=== PATIENT | female | born 1985 | race Caucasian/White ===

== ENCOUNTER 2018-05-15 17:24 | Inpatient (IN) | payer BC ==
[2018-05-15 18:12] VITALS: BMI 34.7
[2018-05-15 18:43] LABS: Bilirubin Negative (Negative); Blood, Urine Negative (Negative); Clarity CLOUDY (Clear); Glucose, Urine (Dipstick) Negative (Negative); Leukocyte Negative (Negative); Nitrite Negative (Negative); Protein, Urine (Dipstick) Negative (Neg-Trace); Urobilinogen 0.2 mg/dL (0.2-1.0); pH, Urine 6.5 (5.0-9.0)
[2018-05-15 18:46] LABS: Pathc Cast-AUWi Flag 1.36 (0-2.49)
[2018-05-15 18:48] LABS: Specific Gravity, Urine 1.002 (1.002-1.036)
[2018-05-15 18:51] LABS: Hemoglobin 13.8 g/dL (12.0-16.0); Mean Corpuscular HGB CONC 34.2 g/dL (32.0-36.0); Mean Corpuscular Hemoglobin 32.6 pg (27.0-31.0); Mean Corpuscular Volume 95.5 fL (78.0-98.0); RBC Distribution Width 12.3 % (11.5-14.5); Red Blood Cell (RBC) Count 4.23 mill/uL (4.20-5.40); White Blood Cell (WBC) Count 11.2 thou/uL (4.8-10.8)
[2018-05-15 18:56] LABS: Bacteria/HPF 1+ HPF (None Seen); Hyaline Casts/LPF NONE SEEN LPF (0-3 Hyaline); RBC/HPF None Seen HPF (0-3); Renal Epithelial None Seen HPF (0-3); Transitional Epithelial NONE SEEN HPF (0-3)
[2018-05-15 19:07] LABS: #Basophils 0.1 thou/uL (0.0-0.2); #Eosinphils 0.1 thou/uL (0.0-0.7); #Lymphocytes 2.3 thou/uL (1.20-3.40); #Monocytes 0.8 thou/uL (0.11-0.59); %Basophils 0.8 % (0.0-1.0); %Eosinophils 0.7 % (0.0-10.0); %Lymphocytes 20.1 % (21.0-51.0); %Monocytes 7.2 % (0.0-10.0); %Neutrophils 71.2 % (42.0-75.0); Large Platelets SLIGHT; MDiff Complete? YES; Mean Platelet Volume 12.1 fL (7.4-10.4); Platelet Count 155 thou/uL (130-400); Platelet Morphology Comment Appears Adequate
[2018-05-15 19:08] LABS: ALT (SGPT) 13 U/L (8-55); AST (SGOT) 17 U/L (5-34); Albumin 3.9 g/dL (3.5-5.0); Alkaline Phosphatase 142 U/L (40-150); Anion Gap 12 mmol/L (10-20); BUN (Urea Nitrogen) 12 mg/dL (7.0-18.7); Bilirubin, Total 0.3 mg/dL (0.2-1.2); Calc. Creatinine Clearance 146 mL/min (70-130); Calcium 9.3 mg/dL (7.8-10.44); Carbon Dioxide 22 mmol/L (22-29); Chloride 105 mmol/L (98-107); Estimated GFR-MDRD 83; Globulin 3.2 g/dL (2.4-3.5); Glucose 76 mg/dL (70-105); Potassium 4.1 mmol/L (3.5-5.1); Protein, Total 7.1 g/dL (6.0-8.3); Sodium 135 mmol/L (136-145); Uric Acid 5.7 mg/dL (2.6-6.0)
[2018-05-15] MEDS ORDERED: Acetaminophen 500 MG TAB PO SCH (19:30)
[2018-05-15] MEDS ORDERED: Lidocaine 1% (PF) 30 ML VIAL SC PRN (19:37)
[2018-05-15] MEDS ORDERED: Zolpidem Tartrate 5 MG TAB PO PRN (19:37)
[2018-05-15] MEDS ORDERED: Acetaminophen 500 MG TAB PO PRN (19:37)
[2018-05-15] MEDS ORDERED: NS / Oxytocin 40 units/1000ml 1,000 ML IV PRN (19:37)
[2018-05-15] MEDS ORDERED: Ondansetron PF 4 MG/2 ML Vial IVP PRN (19:37)
[2018-05-15] MEDS ORDERED: Butorphanol Tartrate 1 MG/ML VIAL SLOW IVP PRN (19:37)
[2018-05-15] MEDS ORDERED: Ibuprofen 800 MG TAB PO PRN (19:37)
[2018-05-15] MEDS: Lactated Ringer's 1,000 ML IV SCH (19:45)
--- NOTE | 2018-05-15 19:55 | PDOC.LDHP ---
Labor and Delivery H&P Chief complaint: other (GHTN) HPI: 32 yo G1 @ 39w1d by LMP c/w 8 week CRL who presented to L&D due to HTN noted at home. Pre E labs wnl. Antepartum course complicated by 50 lb gain, otherwise benign. Pt had been evaluated by Dr. Dash. Current gestational age (weeks): 39 Due date: 05/21/18 Dating criteria: last menstrual period Grav: 1 Para: 0 Current complications: gestational hypertension Abnormal US findings: No Past Medical History: Denies Current medications: pre-chrissie vitamins Previous surgical history: none Allergies/Adverse Reactions: Allergies Allergy/AdvReac Type Severity Reaction Status Date / Time No Known Allergies Allergy Verified 05/15/18 18:13 Social history: none - Physical Exam Abnormal vital signs: Mild HTN, no severe range BPs FHT: category 1 (130s, mod heidy, +accels, no decels) Handley contractions every: no ctx - Vaginal Exam cm dilated: 0 (per RN check ) Effacement: 0% Station: -3 - OB Labs Blood type: O RH: positive Antibody Screen: negative HIV: negative RPR: negative HEPSAg: negative 1 hour GCT: negative GBS: negative Urine drug screen: negative Rubella: immune - Assessment 39w1d IUP GHTN Maternal weight gain > 50 lbs - Plan Plan: admit to L&D, cervical ripening, informed consent obtained, anesthesia consult for pain management -: Monitor BPs, currently mild range and labs wnl.
[2018-05-15 20:55] LABS: Hemoglobin 13.7 g/dL (12.0-16.0); Mean Corpuscular HGB CONC 34.9 g/dL (32.0-36.0); Mean Corpuscular Hemoglobin 33.1 pg (27.0-31.0); Mean Corpuscular Volume 94.6 fL (78.0-98.0); Platelet Count 151 thou/uL (130-400); RBC Distribution Width 12.5 % (11.5-14.5); Red Blood Cell (RBC) Count 4.15 mill/uL (4.20-5.40); White Blood Cell (WBC) Count 11.3 thou/uL (4.8-10.8)
[2018-05-15] MEDS: Misoprostol 100 MCG TAB VAG SCH (21:06)
[2018-05-15 21:32] LABS: Syphilis Antibody Nonreactive (Nonreactive); Syphilis Antibody Index 0.04 S/CO (<1.00 Non-Reactive)
[2018-05-15 23:48] LABS: HBSAg Index 0.28 S/CO (0-0.99); Hep B Surf Ag Non-Reactive S/CO (NonReactive)
[2018-05-16] MEDS: Lactated Ringer's 1,000 ML IV SCH ×2 (00:30→12:05)
[2018-05-16] MEDS ORDERED: Bicitra 30 ML UDCUP ONE (04:17)
[2018-05-16] MEDS ORDERED: Dexamethasone 4 mg/ml Vial ONE (04:30)
[2018-05-16] MEDS ORDERED: Ketorolac Tromethamine 30 MG/ML VIAL ONE ×2 (04:30→16:07)
[2018-05-16] MEDS ORDERED: Ondansetron PF 4 MG/2 ML Vial ONE ×2 (04:30→16:07)
[2018-05-16] MEDS ORDERED: ePHEDrine/0.9% NaCl/PF SYRINGE 50 mg/10 ml ONE (04:30)
[2018-05-16] MEDS ORDERED: PHENYLEPHRINE-NS 100 MCG/ML 10 ML SYRINGE ONE ×2 (04:30→16:07)
[2018-05-16] MEDS ORDERED: Oxytocin 10 UNITS/ML VIAL ONE ×2 (04:30→05:36)
[2018-05-16] MEDS ORDERED: MORPHINE 5 MG/10 ML PF VIAL ONE (04:30)
[2018-05-16] MEDS ORDERED: Ondansetron HCl/PF 4 MG/2 ML Vial IVP PRN (04:43)
[2018-05-16] MEDS ORDERED: Ondansetron PF 4 MG/2 ML Vial IVP PRN (04:43)
[2018-05-16] MEDS ORDERED: Meperidine HCl/PF 25 MG/ML VIAL SLOW IVP PRN (04:43)
[2018-05-16] MEDS ORDERED: Eucerin (Mineral Oil/Petrolatum,White) 30 gm Jar TOP PRN (04:43)
[2018-05-16] MEDS ORDERED: Promethazine HCl 25 MG SUPP PR PRN (04:43)
[2018-05-16] MEDS ORDERED: Promethazine HCl 25 MG/ML VIAL IM PRN (04:43)
[2018-05-16] MEDS ORDERED: HYDROmorphone 2 MG/ML VIAL SLOW IVP PRN (04:43)
[2018-05-16] MEDS ORDERED: Naloxone HCl 0.4 mg/ml Vial IVP PRN ×2 (04:43)
[2018-05-16] MEDS ORDERED: Naloxone HCl 0.4 mg/ml Vial IV PRN (04:43)
[2018-05-16] MEDS ORDERED: L&D-Morphine 4 MG/ML VIAL SLOW IVP PRN (04:43)
[2018-05-16] MEDS ORDERED: diphenhydrAMINE 50 MG/ML VIAL IVP PRN (04:43)
[2018-05-16] MEDS ORDERED: Ketorolac Tromethamine 30 MG/ML VIAL IVP SCH (04:45)
[2018-05-16] MEDS ORDERED: Communication Order-Pharmacy FS SCH (04:45)
--- NOTE | 2018-05-16 04:47 | PDOC.LDPN ---
Labor & Delivery Progress Note - Subjective Subjective: comfortable - Objective Abnormal vital signs: mild HTN, no severe BPs General: NAD Uterine fundus: non tender Dilation: FT Effacement: 0% Station: -3 FHT: category 2 (120s, minimal heidy, occasional late and variable decels. Decels recently resolved with O2, position changes and IVF) [place] contractions every: irreagular ctx Resuscitative measures: maternal oxygen, maternal IV fluids, maternal position change - Assessment (1) 39 weeks gestation of Code(s): Z3A.39 - 39 WEEKS GESTATION OF Current Visit: Yes Status : Acute (2) Gestational hypertension Code(s): O13.9 - GESTATIONAL HTN W/O SIGNIFICANT PROTEINURIA, UNSP TRIMESTER Current Visit: Yes Status: Acute (3) Non-reassuring electronic monitoring tracing Code(s): O76 - ABNLT IN HEART RATE AND RHYTHM COMP LABOR AND DELIVERY Current Visit: Yes Status: Acute -: Reviewed FHTS with pt. Due to NRFHTs remote from delivery and inability to perform any additional induction methods, recommend a PLTCS. Pt amenable. Questions answered.
[2018-05-16 05:46] LABS: Actual Bicarbonate (HCO3a) 24.6 mEq/L (22-28); Base Excess (BEa) -6.5 mEq/L (-2.0 to +3.0)
[2018-05-16 05:49] LABS: Actual Bicarbonate (HCO3v) 23 mEq/L (22-28); Base Excess -6.6 mEq/L (-2.0 to +3.0)
[2018-05-16 05:51] LABS: pH (Cord, venous) 7.19 (7.32-7.43)
--- NOTE | 2018-05-16 06:02 | PDOC.OPDEL ---
OB Operative/Delivery Note Delivery Dr/Surgeon: Zenia Hunt DO Pre-Delivery Diagnosis: non-reassuring tracing Procedure/Post Delivery Dx: primary low transverse CS Weeks gestation: 39 Anesthesia: spinal - Findings A Sex: male - 1 min: 8 - 5 min: 8 - Additional Findings/Plan Placenta delivered: spontaneous findings: low transverse hysterotomy without extension, normal uterus, normal tubes, normal ovaries Estimated blood loss: EBl 500 cc, QBL 290 cc Compilations/Other Findings: in cephalic presentation. Thick meconium stained amniotic fluid Normal appearing placenta. transferred to NICU Post delivery plan: routine recovery
[2018-05-16] MEDS: Misoprostol 100 MCG TAB VAG SCH (07:25)
--- NOTE | 2018-05-16 07:48 | OP ---
DATE OF PROCEDURE: 05/16/2018 PREOPERATIVE DIAGNOSES: 1. A 39 week and 1 day intrauterine . 2. Gestational hypertension. 3. Nonreassuring heart tones. POSTOPERATIVE DIAGNOSES: 1. A 39 week and 1 day intrauterine . 2. Gestational hypertension. 3. Nonreassuring heart tones. PROCEDURE PERFORMED: Primary low-transverse delivery via Pfannenstiel skin incision. SURGEON: Zenia Hunt DO KILN PUSHER: Duane Trujillo MD COMPLICATIONS: None. ESTIMATED BLOOD LOSS: 500 mL. QUANTITATIVE BLOOD LOSS: 290 mL IV FLUIDS: 1000 mL. URINARY OUTPUT: 500 mL of clear urine. FINDINGS: Normal-appearing uterus, fallopian tubes, and ovaries bilaterally. Thick meconium-stained amniotic fluid. A male infant in cephalic presentation with Apgars 8 and 8. Normal-appearing placenta. Hemostasis after completion of the procedure. INDICATIONS FOR PROCEDURE: Ms. Maddison Prater is a 32-year-old G1, P0, at 39 weeks and 1 day, who presented for evaluation of elevated blood pressures at home. She was found to have mild range blood pressures and preeclampsia labs were normal. The patient was kept for an induction due to gestational hypertension. She received one dose of Cytotec vaginally with minimal change and the heart tones began to display category II strip with minimal variability, occasionally variable and late decels that were minimally responsive to maternal resuscitative measures and she also was not tachysystole as her contractions were irregular. The patient was then counseled on this and due to the intolerance of induction and remote from delivery, a primary delivery was recommended and the patient was amenable. PROCEDURE IN DETAIL: She was brought to the operating room and she was placed under spinal anesthesia and placed in supine position with a leftward tilt. A Gray catheter was placed and she was given Ancef for surgical prophylaxis. Abdomen was prepped and draped in sterile fashion. An official time out was performed. Anesthesia was assessed and proven to be adequate. A Pfannenstiel skin incision was made using the scalpel and carried down to the underlying fascia layer. The fascia was incised in the midline and extended bilaterally using Meraz scissors. The superior aspect of the fascial incision was grasped using Rl clamps, tented upward, dissected free from the underlying rectus abdominis muscles and the same was performed in the inferior aspect of the fascial incision. The peritoneum was then grasped using hemostats, elevated and incised. The peritoneal incision was extended using blunt dissection. An Asael O retractor was then placed into the abdomen. The bladder was noted to be close to the lower uterine segment. Therefore, a bladder flap was created to allow inferior reflection of the bladder. A low-transverse hysterotomy was made using the scalpel. The incision was extended using blunt dissection. The amniotic membranes were ruptured noting thick meconium-stained amniotic fluid. was delivered in cephalic presentation without difficulty. Infant's cord was clamped and cut. The was handed to the awaiting NICU Team. Cord sample for cord gases and cord blood were obtained. The placenta was delivered spontaneously intact. The uterus was cleared of all clots and debris. The hysterotomy was closed in a running locking fashion using 1 Monocryl. The hysterotomy was hemostatic after closure. The pelvis was irrigated and cleared of all clot and debris. The fallopian tubes and ovaries were evaluated and appeared normal. The appendix was also seen and also was normal in appearance. The pelvis was irrigated and cleared of all clot and debris. The Asael O retractor was removed from the abdomen. The peritoneum was closed in a running fashion using 2-0 chromic. The rectus abdominis muscles were evaluated and hemostatic. The fascia was closed in a running fashion using 0 PDS. Subcutaneous layer was copiously irrigated and hemostatic with the use of the Bovie. The subcutaneous layer was closed using 3-0 Vicryl and the skin was closed using 4-0 Vicryl and Dermabond. The patient tolerated the procedure well. There were no complications. All counts were correct x3. The was transferred to NICU due to requiring oxygenation likely due to meconium amniotic fluid and transitional tachypnea of the . The mother will be transferred to routine recovery. Job ID: [id number] [facility]
[2018-05-16] MEDS ORDERED: NS / Oxytocin 40 units/1000ml 1,000 ML IV SCH (08:39)
[2018-05-16] MEDS ORDERED: Simethicone Chewable 80 MG TAB PO PRN (08:39)
[2018-05-16] MEDS ORDERED: diphenhydrAMINE 25 MG CAP PO PRN (08:39)
[2018-05-16] MEDS ORDERED: Ibuprofen 800 MG TAB PO SCH (08:39)
[2018-05-16] MEDS ORDERED: Bisacodyl 10 MG SUPP PR PRN (08:39)
[2018-05-16] MEDS ORDERED: HYDROcodone/Acetaminophen 5/325 mg Tablet PO PRN (08:39)
[2018-05-16] MEDS ORDERED: Misoprostol 200 MCG TAB PR PRN (08:39)
[2018-05-16] MEDS ORDERED: Acetaminophen 325 MG TAB PO PRN (08:39)
[2018-05-16] MEDS: Docusate Calcium (SURFAK) 240 MG CAP PO SCH ×2 (10:30→22:39)
[2018-05-16] MEDS: Prenatal Vitamin 1 TAB PO SCH (10:30)
[2018-05-16] MEDS: Ferrous Sulfate 325 MG TAB PO SCH (10:30)
[2018-05-16] MEDS: Ibuprofen 800 MG TAB PO SCH ×2 (10:30→17:12)
[2018-05-16] MEDS: Ketorolac Tromethamine 30 MG/ML VIAL IVP PRN ×2 (12:06→18:08)
[2018-05-16] MEDS ORDERED: Dexamethasone 20 MG/5 ML VIAL ONE (16:07)
[2018-05-17] MEDS ORDERED: Lanolin Ointment 7 GM TUBE TOP PRN (03:38)
[2018-05-17] MEDS: HYDROcodone/Acetaminophen 5/325 mg Tablet PO PRN ×2 (06:03→20:19)
[2018-05-17] MEDS: Ibuprofen 800 MG TAB PO SCH ×3 (06:05→21:23)
[2018-05-17] MEDS: Lactated Ringer's 1,000 ML IV SCH (07:42)
[2018-05-17] MEDS: Ferrous Sulfate 325 MG TAB PO SCH ×2 (07:42→09:21)
[2018-05-17 07:54] LABS: #Lymphocytes 2.3 thou/uL (1.20-3.40); #Monocytes 0.7 thou/uL (0.11-0.59); %Basophils 0.3 % (0.0-1.0); %Eosinophils 0.3 % (0.0-10.0); %Lymphocytes 15.4 % (21.0-51.0); %Monocytes 4.5 % (0.0-10.0); %Neutrophils 79.5 % (42.0-75.0); Hemoglobin 12.2 g/dL (12.0-16.0); Mean Corpuscular HGB CONC 33.6 g/dL (32.0-36.0); Mean Corpuscular Hemoglobin 32.2 pg (27.0-31.0); Mean Corpuscular Volume 95.8 fL (78.0-98.0); Mean Platelet Volume 11.1 fL (7.4-10.4); Platelet Count 143 thou/uL (130-400); RBC Distribution Width 12.5 % (11.5-14.5); Red Blood Cell (RBC) Count 3.81 mill/uL (4.20-5.40); White Blood Cell (WBC) Count 15.1 thou/uL (4.8-10.8)
--- NOTE | 2018-05-17 08:07 | PDOC.PP ---
Post Progress Note Post Day #: 1 Subjective: No concerns. Doing well. Pain and lochia minimal. Pumping/breast feeding. Infant out of NICU. PO intake tolerated: yes Flatus: yes Ambulation: yes Vital Signs (12 hours) Temp Pulse Resp BP BP Pulse Ox 05/17/18 04:00 98.3 F 71 20 128/72 05/17/18 02:00 18 05/17/18 00:00 97.7 F 64 18 123/80 05/16/18 22:00 20 05/16/18 20:26 97.8 F 67 18 118/74 97 Weight Weight 202 lb - Physical Examination General: NAD Cardiovascular: RRR Respiratory: non-labored breathing Abdominal: no distention, appropriately TTP Fundus firm & at: below umbilicus Extremities: negative homans (B) Skin: CS incision dry & intact, no rash Neurological: no gross focal deficits Psychiatric: A&Ox3, normal affect Result Diagrams: 05/17/18 07:21 05/15/18 18:35 Additional Labs: Post Labs Blood Type O POSITIVE 05/15/18 21:03 Hep Bs Antigen Non-Reactive S/CO (NonReactive) 05/15/18 20:37 (1) 39 weeks gestation of Code(s): Z3A.39 - 39 WEEKS GESTATION OF Status: Resolved (2) Gestational hypertension Code(s): O13.9 - GESTATIONAL HTN W/O SIGNIFICANT PROTEINURIA, UNSP TRIMESTER Status: Resolved (3) Non-reassuring electronic monitoring tracing Code(s): O76 - ABNLT IN HEART RATE AND RHYTHM COMP LABOR AND DELIVERY Status: Resolved (4) delivery delivered Code(s): O82 - ENCOUNTER FOR DELIVERY WITHOUT INDICATION Status: Acute - Assessment/Plan PPD1 VSSAF, BPs wnl. Continue PP care. Plan for d/c tomorrow.
[2018-05-17] MEDS: Prenatal Vitamin 1 TAB PO SCH ×3 (09:22→09:24)
[2018-05-17] MEDS: Docusate Calcium (SURFAK) 240 MG CAP PO SCH ×2 (09:22→20:19)
[2018-05-18] MEDS: Lactated Ringer's 1,000 ML IV SCH ×2 (01:14→06:06)
[2018-05-18] MEDS: Ferrous Sulfate 325 MG TAB PO SCH ×2 (01:15→09:04)
[2018-05-18] MEDS: HYDROcodone/Acetaminophen 5/325 mg Tablet PO PRN ×2 (02:17→10:12)
[2018-05-18] MEDS: Ibuprofen 800 MG TAB PO SCH ×2 (05:53→14:04)
[2018-05-18 08:11] VITALS: BP 111/70; TEMP 98.3
--- NOTE | 2018-05-18 08:16 | PDOC.PP ---
Post Progress Note Post Day #: 2 Subjective: No concerns. Pain and lochia minimal. Breast feeding, s/p LC consult. PO intake tolerated: yes Flatus: yes Ambulation: yes Vital Signs (12 hours) Temp Pulse Resp BP Pulse Ox 05/18/18 08:11 98.3 F 77 16 111/70 99 05/18/18 00:00 98.0 F 70 18 119/72 Weight Weight 202 lb - Physical Examination General: NAD Cardiovascular: RRR Respiratory: non-labored breathing Abdominal: no distention, appropriately TTP Fundus firm & at: below umbilicus Extremities: negative homans (B) Skin: CS incision dry & intact, no rash Neurological: no gross focal deficits Psychiatric: A&Ox3, normal affect Result Diagrams: 05/17/18 07:21 05/15/18 18:35 Additional Labs: Post Labs Blood Type O POSITIVE 05/15/18 21:03 Hep Bs Antigen Non-Reactive S/CO (NonReactive) 05/15/18 20:37 (1) 39 weeks gestation of Code(s): Z3A.39 - 39 WEEKS GESTATION OF Status: Resolved (2) Gestational hypertension Code(s): O13.9 - GESTATIONAL HTN W/O SIGNIFICANT PROTEINURIA, UNSP TRIMESTER Status: Resolved (3) Non-reassuring electronic monitoring tracing Code(s): O76 - ABNLT IN HEART RATE AND RHYTHM COMP LABOR AND DELIVERY Status: Resolved (4) delivery delivered Code(s): O82 - ENCOUNTER FOR DELIVERY WITHOUT INDICATION Status: Acute - Assessment/Plan PPD 2 VSSAF D/c home today with infant. F/U 2 weeks.
[2018-05-18] MEDS: Docusate Calcium (SURFAK) 240 MG CAP PO SCH (09:03)
[2018-05-18] MEDS: Prenatal Vitamin 1 TAB PO SCH (09:03)
== END 2018-05-18 17:30 | disposition home or self-care (01) | DRG 788 ==
LOC: L&D/OP 17:24 → L&D 20:11 → 3SW 05-16 08:30
PROVIDERS: ADMIT Obstetrics & Gynecology; ATTEND Obstetrics & Gynecology
PROC: 10D00Z1 Extraction of Products of Conception, Low, Open Approach (ICD-10-PCS; principal; 2018-05-16)
DX: O13.4 Gestational [pregnancy-induced] hypertension without significant proteinuria, complicating childbirth (principal); Z3A.39 39 weeks gestation of pregnancy; Z37.0 Single live birth; O76 Abnormality in fetal heart rate and rhythm complicating labor and delivery; O77.0 Labor and delivery complicated by meconium in amniotic fluid
CPT/HCPCS: 36415; 51702; 59025; 80053; 81001; 82805; 84550; 85025; 86780; 86850; 86900; 86901; 87340; 99285; J1100; J1885; J2270; J2405; J2590